=== PATIENT | male | born 1945 | race Caucasian/White ===

== ENCOUNTER 2020-08-19 09:10 | Outpatient (REF) | payer MEDICARE, SELFPAY ==
[2020-08-19 12:08] LABS: TSH reflex Free T4 10.21 uIU/mL (0.32-4.0)
[2020-08-19 12:11] LABS: Alanine Aminotransferase 26 U/L (0-40); Albumin Level 4.1 g/dL (3.5-5.0); Alkaline Phosphatase 73 U/L (39-117); Anion Gap 15 (12-20); Aspartate Amino Transferase 20 U/L (5-37); Bilirubin Total 0.8 mg/dL (0.0-1.0); Blood Urea Nitrogen 15 mg/dL (9-16); Calcium 8.6 mg/dL (8.4-10.2); Carbon Dioxide 28 mmol/L (22-29); Chloride 103 mmol/L (96-108); Estimated Glomerular Filt Rate > 60; Glucose Random 87 mg/dL (60-115); Potassium 5.1 mmol/L (3.3-5.1); Sodium 141 mmol/L (135-145)
[2020-08-19 13:52] LABS: Free T4 (Free Thyroxine) 1.02 ng/dL (0.71-1.85)
== END 2020-08-19 09:11 | disposition home or self-care (01) ==
LOC: HO.WFDLDS 09:10
PROVIDERS: Visit Provider Family Medicine
DX: Z00.00 Encounter for general adult medical examination without abnormal findings (principal); E03.9 Hypothyroidism, unspecified; R03.0 Elevated blood-pressure reading, without diagnosis of hypertension
CPT/HCPCS: 36415; 80053; 84439; 84443

== ENCOUNTER 2021-05-25 10:55 | Outpatient (REF) | payer MEDICARE, SELFPAY ==
[2021-05-25 14:00] LABS: MANUAL DIFF FLAG NO
[2021-05-25 14:08] LABS: Basophils Percent Auto 0.4 % (0-2); Eosinophils Absolute Auto 0.3 X10*3/uL (0.0-0.4); Eosinophils Percent Auto 2.8 % (0-4); Hematocrit 47.2 % (42.0-52.0); Hemoglobin 15.1 g/dl (14.0-18.0); Imm Gran Abs Auto 0.06 X10*3/uL (0.00-0.03); Imm Gran Pct Auto 0.6 % (0.0-0.4); Lymphocytes Absolute Auto 1.7 X10*3/uL (1.2-4.9); Lymphocytes Percent Auto 17.1 % (20-40); Mean Corpuscular Hemoglobin 30.4 pg (27.0-33.0); Mean Platelet Volume 11.6 fL (9.4-12.4); Monocytes Absolute Auto 0.5 X10*3/uL (0.1-1.2); Monocytes Percent Auto 5.2 % (2-11); Neutrophils Absolute Auto 7.3 x10*3/uL (2.0-8.3); Neutrophils Percent Auto 73.9 % (45-73); Platelet Count 199 X10*3/uL (160-400); Red Blood Count 4.97 X10*6/uL (4.60-5.80); Red Cell Distribution Width 15.2 % (11.0-16.0); White Blood Count 9.9 X10*3/uL (4.8-10.8)
[2021-05-25 14:37] LABS: Alanine Aminotransferase 22 U/L (0-40); Albumin Level 4.2 g/dL (3.5-5.0); Alkaline Phosphatase 78 U/L (39-117); Anion Gap 12 (12-20); Aspartate Amino Transferase 11 U/L (5-37); Bilirubin Total 0.5 mg/dL (0.0-1.0); Blood Urea Nitrogen 22 mg/dL (9-16); Calcium 9.5 mg/dL (8.4-10.2); Carbon Dioxide 29 mmol/L (22-29); Chloride 104 mmol/L (96-108); Cholesterol 277 mg/dL; Estimated Glomerular Filt Rate > 60; Glucose Fasting 126 mg/dL (60-99); HDL Cholesterol 67 mg/dL; LDL Cholesterol Calculated 177 mg/dl; Potassium 4.3 mmol/L (3.3-5.1); Sodium 141 mmol/L (135-145); Total Protein 7.4 g/dL (6.5-8.0); Triglycerides 168 mg/dL
[2021-05-25 14:45] LABS: TSH reflex Free T4 4.04 uIU/mL (0.32-4.0)
[2021-05-25 15:53] LABS: Free T4 (Free Thyroxine) 1.28 ng/dL (0.71-1.85)
[2021-05-25 16:00] LABS: Prostate Specific Antigen Scr 0.93 ng/mL (<0.05-4.0)
== END 2021-05-25 10:56 | disposition home or self-care (01) ==
LOC: HO.WFDLDS 10:55
PROVIDERS: Visit Provider Family Medicine
DX: Z00.00 Encounter for general adult medical examination without abnormal findings (principal); E03.9 Hypothyroidism, unspecified; Z12.5 Encounter for screening for malignant neoplasm of prostate
CPT/HCPCS: 36415; 80053; 80061; 84153; 84439; 84443; 85025

== ENCOUNTER 2021-11-11 09:14 | Outpatient (REF) | payer MEDICARE, SELFPAY ==
[2021-11-11 11:03] LABS: Alanine Aminotransferase 22 U/L (0-40); Albumin Level 4.2 g/dL (3.5-5.0); Alkaline Phosphatase 73 U/L (39-117); Anion Gap 12 (12-20); Aspartate Amino Transferase 17 U/L (5-37); Bilirubin Total 0.7 mg/dL (0.0-1.0); Blood Urea Nitrogen 19 mg/dL (9-16); Calcium 9.5 mg/dL (8.4-10.2); Carbon Dioxide 30 mmol/L (22-29); Chloride 103 mmol/L (96-108); Estimated Glomerular Filt Rate > 60; Glucose Fasting 98 mg/dL (60-99); Potassium 4.9 mmol/L (3.3-5.1); Sodium 140 mmol/L (135-145)
[2021-11-11 11:22] LABS: Creatinine Urine 189.44 mg/dL; Microalbum/Creatinine Ratio Ur 8.9 ug/mg cr
[2021-11-11 11:27] LABS: Free T4 (Free Thyroxine) 1.92 ng/dL (0.71-1.85); Thyroid Stimulating Hormone 0.21 uIU/mL (0.32-4.0)
[2021-11-12 22:56] LABS: Triiodothyronine T3 Total 98 ng/dL (76-181)
== END 2021-11-11 09:15 | disposition home or self-care (01) ==
LOC: HO.WFDLDS 09:14
PROVIDERS: Visit Provider Family Medicine
DX: Z00.00 Encounter for general adult medical examination without abnormal findings (principal); I10 Essential (primary) hypertension; E03.9 Hypothyroidism, unspecified; R73.01 Impaired fasting glucose
CPT/HCPCS: 36415; 80053; 82043; 84439; 84443; 84480

== ENCOUNTER 2021-12-22 07:19 | Outpatient (REF) | payer MEDICARE, SELFPAY ==
[2021-12-22 11:22] LABS: MANUAL DIFF FLAG NO
[2021-12-22 11:39] LABS: Basophils Absolute Auto 0.1 X10*3/uL (0.0-0.2); Basophils Percent Auto 1.1 % (0-2); Eosinophils Absolute Auto 0.9 X10*3/uL (0.0-0.4); Eosinophils Percent Auto 14.2 % (0-4); Hematocrit 41.2 % (42.0-52.0); Hemoglobin 13.3 g/dl (14.0-18.0); Imm Gran Abs Auto 0.03 X10*3/uL (0.00-0.03); Imm Gran Pct Auto 0.5 % (0.0-0.4); Lymphocytes Absolute Auto 1.5 X10*3/uL (1.2-4.9); Lymphocytes Percent Auto 24.9 % (20-40); Mean Corpuscular HGB Conc 32.3 g/dl (31.0-36.0); Mean Platelet Volume 11.8 fL (9.4-12.4); Monocytes Absolute Auto 0.5 X10*3/uL (0.1-1.2); Monocytes Percent Auto 8.3 % (2-11); Neutrophils Absolute Auto 3.1 x10*3/uL (2.0-8.3); Platelet Count 202 X10*3/uL (160-400); Red Blood Count 4.43 X10*6/uL (4.60-5.80); Red Cell Distribution Width 14.1 % (11.0-16.0); White Blood Count 6.1 X10*3/uL (4.8-10.8)
[2021-12-22 12:27] LABS: Alanine Aminotransferase 15 U/L (0-40); Albumin Level 3.7 g/dL (3.5-5.0); Alkaline Phosphatase 68 U/L (39-117); Anion Gap 14 (12-20); Aspartate Amino Transferase 13 U/L (5-37); Bilirubin Total 0.4 mg/dL (0.0-1.0); Blood Urea Nitrogen 19 mg/dL (9-16); Calcium 8.8 mg/dL (8.4-10.2); Carbon Dioxide 25 mmol/L (22-29); Chloride 107 mmol/L (96-108); Estimated Glomerular Filt Rate > 60; Glucose Random 97 mg/dL (60-115); Potassium 4.7 mmol/L (3.3-5.1); Sodium 141 mmol/L (135-145); Total Protein 6.1 g/dL (6.5-8.0)
[2021-12-28 13:17] LABS: Testosterone, Free 46.3 pg/mL (30.0-135.0); Testosterone, Total 338 ng/dL (250-1100)
== END 2021-12-22 07:20 | disposition home or self-care (01) ==
LOC: HO.WFDLDS 07:19
PROVIDERS: Visit Provider Family Medicine
DX: Z00.00 Encounter for general adult medical examination without abnormal findings (principal); R53.83 Other fatigue
CPT/HCPCS: 36415; 80053; 84402; 84403; 85025

== ENCOUNTER → 2022-01-01 09:41 | Outpatient (BNVA) | payer MEDICARE, SELFPAY | PROVIDERS: PCP Family Medicine; Visit Provider Internal Medicine Endocrinology, Diabetes & Metabolism | DX: E03.9 Hypothyroidism, unspecified (principal) | CPT/HCPCS: 99202 ==

== ENCOUNTER 2022-02-26 07:18 | Outpatient (REF) | payer MEDICARE, SELFPAY ==
[2022-02-26 11:11] LABS: MANUAL DIFF FLAG NO
[2022-02-26 11:31] LABS: Basophils Absolute Auto 0.1 X10*3/uL (0.0-0.2); Eosinophils Absolute Auto 1.5 X10*3/uL (0.0-0.4); Eosinophils Percent Auto 18.6 % (0-4); Hematocrit 39.8 % (42.0-52.0); Hemoglobin 12.9 g/dl (14.0-18.0); Imm Gran Abs Auto 0.04 X10*3/uL (0.00-0.03); Imm Gran Pct Auto 0.5 % (0.0-0.4); Lymphocytes Absolute Auto 1.9 X10*3/uL (1.2-4.9); Mean Corpuscular HGB Conc 32.4 g/dl (31.0-36.0); Mean Corpuscular Hemoglobin 29.4 pg (27.0-33.0); Mean Corpuscular Volume 90.7 fL (80.0-98.0); Mean Platelet Volume 11.3 fL (9.4-12.4); Monocytes Absolute Auto 0.6 X10*3/uL (0.1-1.2); Monocytes Percent Auto 7.4 % (2-11); Neutrophils Absolute Auto 3.8 x10*3/uL (2.0-8.3); Neutrophils Percent Auto 48.5 % (45-73); Platelet Count 238 X10*3/uL (160-400); Red Blood Count 4.39 X10*6/uL (4.60-5.80); Red Cell Distribution Width 15.6 % (11.0-16.0); White Blood Count 7.8 X10*3/uL (4.8-10.8)
[2022-02-26 12:05] LABS: Alanine Aminotransferase 11 U/L (0-40); Albumin Level 3.4 g/dL (3.5-5.0); Alkaline Phosphatase 64 U/L (39-117); Anion Gap 14 (12-20); Aspartate Amino Transferase 13 U/L (5-37); Bilirubin Total 0.2 mg/dL (0.0-1.0); Blood Urea Nitrogen 20 mg/dL (9-16); Calcium 8.6 mg/dL (8.4-10.2); Carbon Dioxide 28 mmol/L (22-29); Chloride 101 mmol/L (96-108); Cholesterol 204 mg/dL; Estimated Glomerular Filt Rate > 60; Glucose Fasting 90 mg/dL (60-99); HDL Cholesterol 40 mg/dL; LDL Cholesterol Calculated 139 mg/dl; Potassium 4.8 mmol/L (3.3-5.1); Sodium 138 mmol/L (135-145); Total Protein 5.4 g/dL (6.5-8.0); Triglycerides 126 mg/dL
[2022-02-26 12:07] LABS: Appearance Urine Clear; Color Urine Yellow; Glucose Urine UA Negative (Negative); Leukocyte Esterase Urine Negative (Negative); Nitrite Urine Negative (Negative); PH 6.5 (5.0-9.0); Urine Blood Negative (Negative); Urine Ketones Negative (Negative); Urine Protein Negative (Neg-Trace)
[2022-02-26 12:14] LABS: Free T4 (Free Thyroxine) 1.28 ng/dL (0.71-1.85); Prostate Specific Antigen Scr 0.58 ng/mL (<0.05-4.0); TSH reflex Free T4 6.94 uIU/mL (0.32-4.0)
[2022-02-26 12:17] LABS: Cortisol Random 14.4 ug/dL
== END 2022-02-26 07:19 | disposition home or self-care (01) ==
LOC: HO.WFDLDS 07:18
PROVIDERS: Family Medicine; Visit Provider Internal Medicine Endocrinology, Diabetes & Metabolism
DX: Z00.00 Encounter for general adult medical examination without abnormal findings (principal); Z12.5 Encounter for screening for malignant neoplasm of prostate; R73.01 Impaired fasting glucose; R53.83 Other fatigue; E03.9 Hypothyroidism, unspecified
CPT/HCPCS: 36415; 80053; 80061; 81003; 82533; 84153; 84439; 84443; 85025

== ENCOUNTER 2022-05-19 10:28 | Outpatient (REF) | payer MEDICARE, SELFPAY ==
[2022-05-19 15:00] LABS: Free T4 (Free Thyroxine) 1.25 ng/dL (0.71-1.85); Thyroid Stimulating Hormone 3.86 uIU/mL (0.32-4.0)
== END 2022-05-19 10:29 | disposition home or self-care (01) ==
LOC: HO.WFDLDS 10:28
PROVIDERS: Visit Provider Internal Medicine Endocrinology, Diabetes & Metabolism
DX: E03.9 Hypothyroidism, unspecified (principal)
CPT/HCPCS: 36415; 84439; 84443

== ENCOUNTER → 2022-05-25 15:26 | Outpatient (BNVA) | payer MEDICARE, SELFPAY | PROVIDERS: PCP Family Medicine; Visit Provider Internal Medicine Endocrinology, Diabetes & Metabolism | DX: E03.9 Hypothyroidism, unspecified (principal) | CPT/HCPCS: 99212 ==

== ENCOUNTER 2022-12-15 12:00 | Outpatient (AMB) | payer MEDICARE, SELFPAY ==
--- NOTE | 2022-12-15 12:04 | MHC.PC.OV ---
Vital Signs 12/15/22 12:08 Height 5 ft 8 in Weight 178 lb BMI 27.1 BP 132/72 Blood Pressure Location Lt brachial Position Sitting Respiration 15 Pulse 55 Pulse Source Pulse Oximeter Temp 98.6 F Temp Source Temporal Artery Scan Pulse Oximetry (%) 98 Oxygen Delivery Method Room Air Intake Visit Reasons: CPE with f/u labs and health maintenance Intake Note: Patient is here with his sister, Ana, and following up about labs. Ham Trimmer Required: No Accompanied by: Self / Same As Patient Allergies penicillin G Allergy (Mild, Verified 12/15/22 12:13) vomiting, nausea penicillin V Allergy (Mild, Verified 12/15/22 12:13) nausea, vomiting Medication List - Last Reconciled 12/15/22 by Jean Paul Fay MD colchicine 0.6 mg PO DAILY 90 days diclofenac sodium 75 mg PO BID 90 days gabapentin 300 mg PO BEDTIME 90 days Synthroid (levothyroxine) 125 mcg PO .qod 90 days NS Synthroid (levothyroxine) 137 mcg PO .qod NS tadalafil (Cialis) 20 mg PO DAILY PRN 30 days tamsulosin 0.4 mg PO BEDTIME 90 days Tobacco use date assessed: 12/15/22 Fall risk assessment: No Falls in past year Last assessed Fall Risk: 12/15/22 Dental Screening Dental Screen Date: 12/15/22 Did you have a dental visit in the last 12 months?: Yes Did you have a dental problem in the last 6 months where you did not have access to dental care?: No Was dental information given to patient?: Patient has dentist HPI CPE with f/u labs and health maintenance HPI Details 77 y/o male presents for a CPE with f/u labs and health maintenance. No recent labs to review. Pt has complaints of polyarthralgia. HPI Comments History of Present Illness Details Documentation assistance for Jean Paul Fay MD, was provided by Cam Barber,? Director Sales And Trade Marketing on 12/15/2022 12:39 PM EDWIN. Todd, Dr. Fay, have read, observed, and verified documentation.? [facility] Surgical History History of carpal tunnel surgery History of left cataract surgery History of repair of left rotator cuff History of right cataract surgery History of surgery Family History Mother Ovarian cancer Father Lung cancer Social History Housing: House Patient Tobacco Use Status: Former Tobacco user (50 years ago) Tobacco use type: Cigar e-Cigarette/Vaping Use: Never Used Second Hand Smoke Exposure: No service: No Current occupational status: retired Current occupational exposures/hazards: No Cognitive needs: No Hearing needs: No Vision needs: No Questionnaire Thrive Questionnaire Date Thrive assessed: 11/11/21 JEANMARIE-7 AMB Questionnaire JEANMARIE-7 Date JEANMARIE - 7 assessed: 12/18/21 Source: Developed by Drs. Tim George, Scarlett Fenton, Yong Ybarra and colleagues, with an educational thad from [employer]. Review of Systems Const Denies chills, Denies fatigue, Denies fever(s), Denies headache(s) and Denies weakness Eyes Denies change in vision ENT Denies dizziness, Denies headache(s), Denies hearing loss, Denies nasal congestion, Denies sinus pain, Denies sinus pressure and Denies sore throat Card Denies chest pain, Denies lightheadedness, Denies dyspnea and Denies other (palpitations) Resp Denies cough, Denies dyspnea and Denies wheezing GI Denies abdominal pain, Denies melena, Denies hematochezia, Denies change in bowel habits, Denies dyspepsia and Denies nausea Denies hematuria and Denies dysuria Musc Denies abnormal gait, Denies myalgias, Denies arthralgias, Denies numbness and Denies tingling Skin/Breast Denies rash, Denies unusual bruising and Denies wounds Neuro Denies abnormal gait, Denies dizziness, Denies headache(s), Denies memory loss, Denies numbness, Denies Sensory deficit (Neuro), Denies tingling and Denies weakness Psych Denies anxiety, Denies depression and Denies memory loss Endo Denies cold intolerance, Denies fatigue, Denies heat intolerance, Denies polydipsia and Denies polyuria [place]/Lymph Denies easy bleeding and Denies easy bruising Aller/Immun Denies wheezing Physical exam (Primary Care) Vital Signs: Last Vital Signs Temp 98.6 F 12/15/22 12:08 Pulse 55 12/15/22 12:08 Resp 15 12/15/22 12:08 BP 132/72 12/15/22 12:08 Pulse Ox 98 12/15/22 12:08 Oxygen Delivery Method Room Air 12/15/22 12:08 BMI result Body Mass Index 27.1 Tobacco/Smoking Status: Tobacco use Status Tobacco use date assessed 12/15/22 12/15/22 12:14 Patient Tobacco Use Status Former Tobacco user (50 12/15/22 12:05 years ago) Tobacco use type Cigar 12/15/22 12:05 e-Cigarette/Vaping Use Never Used 12/15/22 12:05 Thrive Assessment: Date of Thrive Assessment Date Thrive assessed 11/11/21 12/15/22 12:05 Const General: no acute distress, well developed, alert and awake Nutritional Appearance: well nourished Orientation/consciousness: patient oriented x3 HENMT Head: Yes normocephalic and Yes atraumatic Ears: hearing grossly normal bilaterally and TM's normal bilaterally General nose exam: Normal external nose present and Normal nares present Mouth: Normal oral and palatal mucosa present and moist mucous membranes Teeth and gingiva: dentition normal Throat: Yes posterior oropharynx normal Eyes General: appearance normal, both eyes and all related structures Pupils: Equal, round and reactive pupils present and Pupil accommodation reflex normal EOM: EOMs intact bilaterally Neck Neck: Yes normal visual inspection, Yes no lymphadenopathy and Yes trachea midline Thyroid: Thyroid normal Carotids: no bruits Lymphatic: no lymphadenopathy noted Chest Chest palpation & inspection: normal inspection of the chest Resp Effort & Inspection: normal respiratory effort Auscultation: clear to auscultation bilaterally Cardio Rate: regular rate Rhythm: regular rhythm Heart sounds: S1 normal heart sound present, S2 normal heart sound present, no gallops, no murmurs and no rubs Bruits: no abdominal aortic bruits and no carotid bruits GI Palpation (GI): No Abdominal aortic bruit present, Soft to palpation, nontender, No hepatosplenomegaly present and No Rebound tenderness present Auscultation: normal bowel sounds General: Yes no CVA tenderness Back/Spine/Pelvis Other: Kyphotic spine Back: no CVA tenderness Cervical Spine: cervical ROM normal and No Cervical spine tenderness Thoracic/Lumbar Spine: thoraco-lumbar ROM normal, No pain with thoraco-lumbar ROM, No thoracic spinal tenderness and No lumbar spinal tenderness Skin Lesions: no lesions Rashes: no rashes Trauma: no lacerations or abrasions Wounds: no wounds Nails: normal Neuro General: patient oriented x3 Cranial nerves: Yes Equal, round and reactive pupils present Cognition (Neuro): normal cognition Gait exam (Neuro): Normal gait present Motor exam (neuro): 5/5 motor strength present throughout Sensory Exam: No Sensory deficit (Neuro) Deep tendon reflexes (DTR's): Right patellar reflex intensity grade: 2+ and Left patellar reflex intensity grade: 2+ Extrem Other: Arthritic changes bilateral hands General: Yes normal to inspection and No edema Psych Appearance: grossly normal Affect: normal affect Attitude: cooperative Thought process: Normal thought process present Assessment and Plan Assessment & Plan (1) Adult general medical exam: Code(s): Z00.00 - Encounter for general adult medical examination without abnormal findings Plan: 77-year-old male presents for complete physical exam Encouraged healthy diet with active lifestyle and plenty of exercise (2) Polyarthralgia: Code(s): M25.50 - Pain in unspecified joint Plan: Arthritis polyarthralgias in bilateral hands, shoulders and back Wants to try meloxicam. Has tried ibuprofen and diclofenac. Will give him a trial of meloxicam Will follow-up with him in a month. He had been on Percocet in the past and may benefit from a small chronic dose of a medication such as this if meloxicam is not helping alone. Would follow up and evaluate for this. We we did discuss that we would want use a multifaceted approach. (3) Arthritis: Code(s): M19.90 - Unspecified osteoarthritis, unspecified site Plan: As above (4) Screening for prostate cancer: Code(s): Z12.5 - Encounter for screening for malignant neoplasm of prostate Plan: Check PSA (5) Screening for colon cancer: Code(s): Z12.11 - Encounter for screening for malignant neoplasm of colon Plan: Patient says that he had a colonoscopy in his early 70s and it was negative. Will request report from [facility] Orders: Orders Comprehensive [place]. Panel Fast Today Z00.00 - Encounter for general adult medical examination without abnormal findings Lipid Panel Today Z00.00 - Encounter for general adult medical examination without abnormal findings Prostate Specific Antigen Scr Today Z12.5 - Encounter for screening for malignant neoplasm of prostate TSH reflex Free T4 Today Z00.00 - Encounter for general adult medical examination without abnormal findings Microalbumin, Random (w Creat) Today I10 - Essential (primary) hypertension Complete Blood Count Auto Diff Today Z00.00 - Encounter for general adult medical examination without abnormal findings UA and rflx microscopic Today Z00.00 - Encounter for general adult medical examination without abnormal findings Coding Level of Care Code Est Pt Level 3 (35951) Est Pt Prev Care >65y(96873) Diagnoses Adult general medical exam Z00.00 Polyarthralgia M25.50 Arthritis M19.90 Screening for prostate cancer Z12.5 Screening for colon cancer Z12.11
[2022-12-15 12:08] VITALS: BP 132/72; PULSE 55; RESP 15; TEMP 37; O2SAT 98; BMI 27.1
== END 2022-12-15 12:58 | disposition home or self-care (01) ==
PROVIDERS: PCP Family Medicine; Visit Provider Family Medicine
DX: Z00.00 Encounter for general adult medical examination without abnormal findings (principal); M25.50 Pain in unspecified joint; M19.90 Unspecified osteoarthritis, unspecified site; Z12.5 Encounter for screening for malignant neoplasm of prostate; Z12.11 Encounter for screening for malignant neoplasm of colon
CPT/HCPCS: 99397

== ENCOUNTER 2023-01-07 07:37 | Outpatient (REF) | payer MEDICARE, SELFPAY ==
[2023-01-07 11:22] LABS: MANUAL DIFF FLAG NO
[2023-01-07 11:34] LABS: Appearance Urine Clear; Color Urine Yellow; Glucose Urine UA Negative (Negative); Leukocyte Esterase Urine Negative (Negative); Nitrite Urine Negative (Negative); Specific Gravity - Urine 1.015 (1.005-1.025); Urine Blood Negative (Negative); Urine Ketones Negative (Negative); Urine Protein Negative (Neg-Trace)
[2023-01-07 11:35] LABS: Basophils Absolute Auto 0.1 X10*3/uL (0.0-0.2); Basophils Percent Auto 0.6 % (0-2); Eosinophils Absolute Auto 0.2 X10*3/uL (0.0-0.4); Eosinophils Percent Auto 1.8 % (0-4); Hematocrit 41.2 % (42.0-52.0); Hemoglobin 13.3 g/dl (14.0-18.0); Imm Gran Abs Auto 0.06 X10*3/uL (0.00-0.03); Imm Gran Pct Auto 0.6 % (0.0-0.4); Lymphocytes Absolute Auto 1.8 X10*3/uL (1.2-4.9); Lymphocytes Percent Auto 18.4 % (20-40); Mean Corpuscular HGB Conc 32.3 g/dl (31.0-36.0); Mean Corpuscular Hemoglobin 29.2 pg (27.0-33.0); Mean Corpuscular Volume 90.4 fL (80.0-98.0); Monocytes Absolute Auto 0.6 X10*3/uL (0.1-1.2); Monocytes Percent Auto 6.3 % (2-11); Neutrophils Percent Auto 72.3 % (45-73); Platelet Count 216 X10*3/uL (160-400); Red Blood Count 4.56 X10*6/uL (4.60-5.80); Red Cell Distribution Width 17.5 % (11.0-16.0); White Blood Count 9.7 X10*3/uL (4.8-10.8)
[2023-01-07 11:58] LABS: Alanine Aminotransferase 18 U/L (0-40); Albumin Level 3.8 g/dL (3.5-5.0); Alkaline Phosphatase 77 U/L (39-117); Anion Gap 14 (12-20); Aspartate Amino Transferase 14 U/L (5-37); Bilirubin Total 0.3 mg/dL (0.0-1.0); Blood Urea Nitrogen 25 mg/dL (9-16); Calcium 9.3 mg/dL (8.4-10.2); Carbon Dioxide 27 mmol/L (22-29); Chloride 105 mmol/L (96-108); Cholesterol 256 mg/dL; Estimated Glomerular Filt Rate > 60; Glucose Fasting 78 mg/dL (60-99); HDL Cholesterol 61 mg/dL; LDL Cholesterol Calculated 169 mg/dl; Potassium 4.8 mmol/L (3.3-5.1); Sodium 141 mmol/L (135-145); Total Protein 6.8 g/dL (6.5-8.0); Triglycerides 133 mg/dL
[2023-01-07 12:09] LABS: Prostate Specific Antigen Scr 0.72 ng/mL (<0.05-4.0)
[2023-01-07 12:13] LABS: TSH reflex Free T4 1.58 uIU/mL (0.32-4.0)
[2023-01-07 12:22] LABS: Creatinine Urine 64.21 mg/dL; Microalbum/Creatinine Ratio Ur 7.7 ug/mg cr
== END 2023-01-07 07:38 | disposition home or self-care (01) ==
LOC: HO.WFDLDS 07:37
PROVIDERS: Visit Provider Family Medicine
DX: Z00.00 Encounter for general adult medical examination without abnormal findings (principal); Z12.5 Encounter for screening for malignant neoplasm of prostate; I10 Essential (primary) hypertension
CPT/HCPCS: 36415; 80053; 80061; 81003; 82043; 84153; 84443; 85025

== ENCOUNTER 2023-01-19 09:23 | Outpatient (AMB) | payer MEDICARE, SELFPAY ==
--- NOTE | 2023-01-19 09:25 | MHC.PC.OV ---
Vital Signs 01/19/23 09:27 Height 5 ft 8 in Weight 178 lb 2 oz BMI 27.1 BP 108/66 Blood Pressure Location Rt brachial Position Sitting Respiration 16 Pulse 61 Pulse Source Pulse Oximeter Temp 97.8 F Temp Source Temporal Artery Scan Pulse Oximetry (%) 100 Oxygen Delivery Method Room Air Intake Visit Reasons: f/u polyarthralgia and labs Intake Note: Patient presents today for a follow up of labs drawn 01/07/2023 and polyarthralgia. Patient reports he has aches and pains consistently. Speaking Unit Assembler Required: No Accompanied by: Self / Same As Patient Allergies penicillin G Allergy (Mild, Verified 01/19/23 09:32) vomiting, nausea penicillin V Allergy (Mild, Verified 01/19/23 09:32) nausea, vomiting Tobacco use date assessed: 12/15/22 Fall risk assessment: No Falls in past year Last assessed Fall Risk: 01/19/23 Dental Screening Dental Screen Date: 01/19/23 Did you have a dental visit in the last 12 months?: No Did you have a dental problem in the last 6 months where you did not have access to dental care?: No Was dental information given to patient?: Patient has dentist HPI f/u polyarthralgia and labs HPI Details 77 y/o male presents to f/u polyarthralgia and labs. Had arthritis polyarthralgias in bilateral hands, shoulders and back. Had wanted to trial meloxicam but he reports he tried meloxicam x1 month which did not work. He has seen orthopedics for his shoulders. They had switched his diclofenac to celebrex but he states this only helped minimally. Labs were drawn 01/07/23. Reviewed labs with pt. Triglycerides 133. TC 256. LDL 169. HDL 61. Mild anemia. PFSH Surgical History History of carpal tunnel surgery History of left cataract surgery History of repair of left rotator cuff History of right cataract surgery History of surgery Family History Mother Ovarian cancer Father Lung cancer Social History Housing: House Patient Tobacco Use Status: Former Tobacco user (50 years ago) Tobacco use type: Cigar e-Cigarette/Vaping Use: Never Used Second Hand Smoke Exposure: No service: No Current occupational status: retired Current occupational exposures/hazards: No Cognitive needs: No Hearing needs: No Vision needs: No Questionnaire Thrive Questionnaire Date Thrive assessed: 11/11/21 JEANMARIE-7 AMB Questionnaire JEANMARIE-7 Date JEANMARIE - 7 assessed: 12/18/21 Source: Developed by Drs. Tim George, Scarlett Fenton, Yong Ybarra and colleagues, with an educational thad from [employer]. Review of Systems Const Denies chills, Denies fatigue, Denies fever(s), Denies headache(s) and Denies weakness ENT Denies dizziness and Denies headache(s) Card Denies chest pain, Denies lightheadedness, Denies dyspnea and Denies other (Palpitations) Resp Denies cough, Denies dyspnea, Denies wheezing and Denies other ( shortness of breath) Musc Denies numbness and Denies tingling Neuro Denies dizziness, Denies headache(s), Denies numbness, Denies tingling, Denies paresthesias and Denies weakness Psych Denies anxiety and Denies depression Endo Denies fatigue Aller/Immun Denies wheezing Physical exam (Primary Care) Vital Signs: Last Vital Signs Temp 97.8 F 01/19/23 09:27 Pulse 61 01/19/23 09:27 Resp 16 01/19/23 09:27 BP 108/66 01/19/23 09:27 Pulse Ox 100 01/19/23 09:27 Oxygen Delivery Method Room Air 01/19/23 09:27 BMI result Body Mass Index 27.1 Tobacco/Smoking Status: Tobacco use Status Tobacco use date assessed 12/15/22 01/19/23 09:26 Patient Tobacco Use Status Former Tobacco user (50 01/19/23 09:26 years ago) Tobacco use type Cigar 01/19/23 09:26 e-Cigarette/Vaping Use Never Used 01/19/23 09:26 Thrive Assessment: Date of Thrive Assessment Date Thrive assessed 11/11/21 01/19/23 09:26 Const General: no acute distress and well developed Nutritional Appearance: well nourished Orientation/consciousness: patient oriented x3 HENMT Head: Yes normocephalic and Yes atraumatic Eyes General: appearance normal, both eyes and all related structures Pupils: Equal, round and reactive pupils present EOM: EOMs intact bilaterally Resp Effort & Inspection: normal respiratory effort Auscultation: clear to auscultation bilaterally Cardio Rate: regular rate Rhythm: regular rhythm Heart sounds: S1 normal heart sound present, S2 normal heart sound present, no gallops, no murmurs and no rubs Neuro General: patient oriented x3 and gait normal Cranial nerves: Yes Equal, round and reactive pupils present Psych Affect: normal affect Assessment and Plan Assessment & Plan (1) Polyarthralgia: Code(s): M25.50 - Pain in unspecified joint Plan: Ongoing polyarthralgias and osteoarthritis. He notes some mild improvement on the celecoxib He also notes family history of fibromyalgia and we can look into this further. He would like to try duloxetine so we will start this today. We also discussed using an opioid medication at bedtime and he may be a good candidate for this provided he does not use it during the daytime when overuse his joints. Week and discuss this further at a subsequent visit if celecoxib and duloxetine are not helping. (2) Arthritis: Code(s): M19.90 - Unspecified osteoarthritis, unspecified site Plan: Continue celecoxib He may benefit from an increase in this medication in the future (3) Hyperlipidemia: Code(s): E78.5 - Hyperlipidemia, unspecified Plan: LDL cholesterol is too high. He had been on statins in the past but says they made him sick. Briefly discussed Zetia. He does not want to take another medication at this time Will follow-up on this in a few months. (4) Mild anemia: Code(s): D64.9 - Anemia, unspecified Plan: Improving Will follow (5) Screening for prostate cancer: Code(s): Z12.5 - Encounter for screening for malignant neoplasm of prostate Plan: PSA was within normal limits Orders: Orders Complete Blood Count Auto Diff Today D64.9 - Anemia, unspecified, Z00.00 - Encounter for general adult medical examination without abnormal findings Lipid Panel Today E78.5 - Hyperlipidemia, unspecified, Z00.00 - Encounter for general adult medical examination without abnormal findings Comprehensive [place]. Panel Fast Today E78.5 - Hyperlipidemia, unspecified, Z00.00 - Encounter for general adult medical examination without abnormal findings Erythrocyte Sedimentation Rate Today M25.50 - Pain in unspecified joint CRP High Sensitivity Today M25.50 - Pain in unspecified joint Medications: New duloxetine 20 mg PO BID 60 caps 2RF 30 days Refilled Synthroid (levothyroxine) 125 mcg PO .qod 45 tabs 0RF 90 days NS Synthroid (levothyroxine) 137 mcg PO .qod 45 tabs 0RF NS Discontinued meloxicam Discontinued Reason: Doctor's Order 15 mg PO DAILY 30 tabs 2RF 30 days Coding Level of Care Code Est Pt Level 4 (49670) Diagnoses Polyarthralgia M25.50 Arthritis M19.90 Hyperlipidemia E78.5 Mild anemia D64.9 Screening for prostate cancer Z12.5
[2023-01-19 09:27] VITALS: BP 108/66; PULSE 61; RESP 16; TEMP 36.6; O2SAT 100; BMI 27.1
== END 2023-01-19 10:39 | disposition home or self-care (01) ==
PROVIDERS: PCP Family Medicine; Visit Provider Family Medicine
DX: M25.50 Pain in unspecified joint (principal); M19.90 Unspecified osteoarthritis, unspecified site; E78.5 Hyperlipidemia, unspecified; D64.9 Anemia, unspecified; Z12.5 Encounter for screening for malignant neoplasm of prostate
CPT/HCPCS: 99214

== ENCOUNTER 2023-10-12 14:29 | Outpatient (AMB) | payer MEDICARE, SELFPAY ==
--- NOTE | 2023-10-12 14:44 | MHC.PC.OV ---
Vital Signs 10/12/23 14:49 Height 5 ft 8 in Weight 177 lb 4 oz BMI 26.9 BP 106/52 L Blood Pressure Location Lt radial Position Sitting Respiration 16 Pulse 66 Pulse Source Pulse Oximeter Temp 97.2 F Temp Source Oral Pulse Oximetry (%) 95 Oxygen Delivery Method Room Air Intake Visit Reasons: Clearance EKG and blood work Intake Note: Diarrhea. No longer needs preop appt. Patient is rescheduling surgery in December. Requesting refill on Cialis (paper copy to take to [facility]), refill on valacyclovir. 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 Required: No Allergies penicillin G Allergy (Mild, Verified 10/12/23 14:44) vomiting, nausea penicillin V Allergy (Mild, Verified 10/12/23 14:44) nausea, vomiting Medication List - Last Reconciled 10/12/23 by Yasmine Bridges PA-C colchicine 0.6 mg PO DAILY 90 days diclofenac sodium 75 mg PO BID gabapentin 300 mg PO BEDTIME 90 days Synthroid (levothyroxine) 137 mcg PO .qod NS Synthroid (levothyroxine) 125 mcg PO .qod 90 days NS tadalafil (Cialis) 20 mg PO DAILY PRN 30 days tamsulosin 0.4 mg PO BEDTIME 90 days valacyclovir 500 mg PO BID 10 days Tobacco use date assessed: 10/12/23 Fall risk assessment: No Falls in past year Last assessed Fall Risk: 10/12/23 Dental Screening Dental Screen Date: 10/12/23 Did you have a dental visit in the last 12 months?: Yes Did you have a dental problem in the last 6 months where you did not have access to dental care?: No Was dental information given to patient?: Patient has dentist HPI Clearance EKG and blood work HPI Details Patient is a 78-year-old male with a significant past medical history polyarthralgia, anxiety, hyperlipidemia, ED, mild anemia, and BPH presenting today initially for a preop but states that it is now just a problem visit. Musculoskeletal: He is following with [facility] for his ongoing right shoulder pain. He was scheduled for surgery later this month but he had to bump it to December. He states that he is in the middle of moving to [place] and is waiting for his house to be finished before they move there full-time. He states that this week he has to go to [place] to finish installing the kitchen cabinets and then they plan to list the [place] house which they believe we will sell quickly and require him to pack up and unload furniture in [place]. He states that he can not do all of this while being in a sling. He anticipates that the moves will be done in the next 6 weeks. He is requesting a prescription for Vicodin daily to use for breakthrough pain. He states that the pain is sometimes so severe that it wakes him up at night or that during the day he will have a hard time doing something because his shoulder is very uncomfortable. He is taking Tylenol 3 times a day, diclofenac twice a day and gabapentin 300 mg at night. Psych: He was on Cymbalta in the fall for anxiety and fibromyalgia. He states that he took it for a few weeks but then had diarrhea with this so discontinued it. His , who is here today with him, states that his mood was a lot better while he was on the Cymbalta. She told him to restart this a few weeks ago and he started to develop diarrhea. He then discontinued it. He states that he over thinks a lot at night and sometimes we will have a hard time falling asleep or staying asleep because of his anxiety. He states that he really wants to take something at night. He tried melatonin but it was ineffective. They are under a lot of stress with the move. No SI/HI. GI: Diarrhea started 2-3 weeks after starting cymbalta . He denies any abdominal pain, nausea, vomiting or blood in the stool. He states his last colonoscopy was about 10 years ago at [facility] and was normal. He does not intend to continue with colonoscopies. He has tried Imodium a couple of times which did seem to help with the diarrhea. He is experiencing about 3 episodes of diarrhea a day. He did have 1 day this weekend with a normal bowel movement but then on Tuesday and Tuesday experienced a diarrhea again. He wonders if the diarrhea could also be related to the stress of the move. Denies any consumption of raw or undercooked foods. No recent travel outside of their house in [place]. CV: Blood pressure today in the office is 106/52. Last cholesterol was elevated. He does not want to be on a statin. He has been relatively plant based for the last 10 months. He is curious to see what his cholesterol looks like now. Denies any chest pain or shortness a breath. Endo: Has a history of impaired fasting glucose but last glucose was WNL. No polyuria or polydipsia. He remains on levothyroxine 125 mcg and 137 mcg alternating days. Last TSH was WNL. [facility] Medical History (Updated 10/12/23 @ 15:56 by Yasmine Bridges PA-C) Insomnia Chronic right shoulder pain Surgical History History of surgery History of repair of left rotator cuff History of right cataract surgery History of left cataract surgery History of carpal tunnel surgery Family History Mother Ovarian cancer Father Lung cancer Social History Housing: House Patient Tobacco Use Status: Current someday Tobacco user Tobacco use type: Cigar e-Cigarette/Vaping Use: Never Used Second Hand Smoke Exposure: No service: No Current occupational status: retired Current occupational exposures/hazards: No Cognitive needs: No Hearing needs: No Vision needs: No Questionnaire PHQ-9 Over the last 2 weeks, how often have you been bothered by any of the following problems? 1. Little interest or pleasure in doing things: not at all 2. Feeling down, depressed, or hopeless: not at all 3. Trouble falling or staying asleep, or sleeping too much: more than half the days 4. Feeling tired or having little energy: nearly every day 5. Poor appetite or overeating: not at all 6. Feeling bad about yourself - or that you are a failure or have let yourself or your family down: not at all 7. Trouble concentrating on things, such as reading the newspaper or watching television: more than half the days 8. Moving or speaking so slowly that other people could have noticed. Or the opposite - being so fidgety or restless that you have been moving around a lot more than usual: not at all 9. Thoughts that you would be better off or of hurting yourself in some way: several days Total score: 8 Depression Screening Interpretation: Positive Depression Screening Follow-up: Existing condition and New Medication prescribed Depression Screening Done: Yes 72191 - PHQ-9 Billing: Yes Source: Developed by Drs. Tim George, Scarlett Fenton, Yong Ybarra and colleagues, with an educational thad from [employer]. Thrive Questionnaire Date Thrive assessed: 10/12/23 I am a: Patient What is your living situation today?: I have a steady place to live Within the past 12 months, did the food you bought not last and you didn't have the money to get more?: Never true Within the past 12 months, did you worry whether your food would run out before you got money to buy more?: Never true Do you have trouble paying for medicines?: No Do you have trouble getting transportation to medical appointments?: No Do you have trouble paying your heating and electricity bill?: No Do you have trouble taking care of your child, family member or friend?: No Do you have trouble with day-to-day activities such as bathing, preparing meals, shopping, managing finances, etc.?: No Are you currently unemployed and looking for a job?: No Are you interested in more education?: No Please select the resources that you would like help with: None Currently or been in a relationship where the following occur: no concerns reported THRIVE Score: 0 AUDIT C Alcohol Use Questionnaire (AUDIT-C) 1. How often do you have a drink containing alcohol?: Never 3. How often do you have six or more drinks on one occasion?: Never Total Score: 0 JEANMARIE-7 AMB Questionnaire JEANMARIE-7 Date JEANMARIE - 7 assessed: 10/12/23 Feeling nervous, anxious, or on edge: 3 = Nearly every day Not being able to stop or control worryin = Several days Worrying too much about different things: 2 = More than half the days Trouble relaxin = Not at all Being so restless that it is hard to sit still: 0 = Not at all Becoming easily annoyed or irritable: 2 = More than half the days Feeling afraid as if something awful might happen: 2 = More than half the days Total JEANMARIE-7 score (0-4 normal; 5-9 mild; 10-14 moderate; 15-21 severe): 10 Source: Developed by Scarlett Teixeira Kurt Kroenke and colleagues, with an educational thad from [employer]. JEANMARIE-7 Assessment Billing JEANMARIE-7 Assessment Tool: JEANMARIE-7 Assessment 08326 Physical exam (Primary Care) Vital Signs: Last Vital Signs Temp 97.2 F 10/12/23 14:49 Pulse 66 10/12/23 14:49 Resp 16 10/12/23 14:49 BP 106/52 L 10/12/23 14:49 Pulse Ox 95 10/12/23 14:49 Oxygen Delivery Method Room Air 10/12/23 14:49 BMI result Body Mass Index 26.9 Tobacco/Smoking Status: Tobacco use Status Tobacco use date assessed 10/12/23 10/12/23 14:54 Patient Tobacco Use Status Current someday Tobacco 10/12/23 14:54 Tobacco use type Cigar 10/12/23 14:54 e-Cigarette/Vaping Use Never Used 10/12/23 14:54 Depression Screening Interpretation: Positive Depression Screening Follow-up: Existing condition and New Medication prescribed Thrive Assessment: Date of Thrive Assessment Date Thrive assessed 11/11/21 10/12/23 14:54 Currently or been in a relationship where the following occur: no concerns reported Results Reviewed Results Reviewed: Laboratory Tests 01/07/23 07:38 WBC 9.7 RBC 4.56 L Hgb 13.3 L Hct 41.2 L Plt Count 216 Estimated GFR > 60 Fasting Glucose 78 Triglycerides 133 Cholesterol 256 LDL Cholesterol, Calc 169 HDL Cholesterol 61 TSH 1.58 Assessment and Plan Assessment & Plan (1) Hypothyroid: Code(s): E03.9 - Hypothyroidism, unspecified Qualifiers: Hypothyroidism type: acquired Qualified Code(s): E03.9 - Hypothyroidism, unspecified Plan: TSH ordered (2) Diarrhea: Code(s): R19.7 - Diarrhea, unspecified Qualifiers: Diarrhea type: unspecified type Qualified Code(s): R19.7 - Diarrhea, unspecified Plan: He has discontinued the Cymbalta. Advised to try a probiotic, bland diet. Abdominal exam today is benign. Labs ordered including a CMP, CBC and TSH. We will follow up pending test results. (3) Chronic right shoulder pain: Code(s): M25.511 - Pain in right shoulder; G89.29 - Other chronic pain Plan: We will start Vicodin to use daily as needed. Controlled substance contract signed today. Reviewed this case with patient's PCP. I have also told him he can try taking the gabapentin twice a day. Prescription updated today. (4) Mild anemia: Code(s): D64.9 - Anemia, unspecified Plan: Last labs reviewed. Anemia has been stable. We will check labs. Reports up-to-date colonoscopy but it is at the 10 year zainab. (5) Insomnia: Code(s): G47.00 - Insomnia, unspecified Qualifiers: Insomnia type: psychophysiologic Qualified Code(s): F51.04 - Psychophysiologic insomnia Plan: We will try trazodone. Discussed risks and benefits and adverse effects of this medication. Plan Labs ordered today. Follow up pending test results. Medications refilled. Follow up in 3-4 weeks. Sooner if needed. Patient understands and agrees with the plan. Orders: Orders Complete Blood Count Auto Diff Today D64.9 - Anemia, unspecified, E03.9 - Hypothyroidism, unspecified, F41.9 - Anxiety disorder, unspecified, G89.29 - Other chronic pain, M25.511 - Pain in right shoulder, R19.7 - Diarrhea, unspecified Comprehensive [place]. Panel Fast Today D64.9 - Anemia, unspecified, E03.9 - Hypothyroidism, unspecified, F41.9 - Anxiety disorder, unspecified, G89.29 - Other chronic pain, M25.511 - Pain in right shoulder, R19.7 - Diarrhea, unspecified Ferritin Today D64.9 - Anemia, unspecified, E03.9 - Hypothyroidism, unspecified, F41.9 - Anxiety disorder, unspecified, G89.29 - Other chronic pain, M25.511 - Pain in right shoulder, R19.7 - Diarrhea, unspecified Lipid Panel Today D64.9 - Anemia, unspecified, E03.9 - Hypothyroidism, unspecified, F41.9 - Anxiety disorder, unspecified, G89.29 - Other chronic pain, M25.511 - Pain in right shoulder, R19.7 - Diarrhea, unspecified IRON PROFILE Today D64.9 - Anemia, unspecified, E03.9 - Hypothyroidism, unspecified, F41.9 - Anxiety disorder, unspecified, G89.29 - Other chronic pain, M25.511 - Pain in right shoulder, R19.7 - Diarrhea, unspecified TSH reflex Free T4 Today D64.9 - Anemia, unspecified, E03.9 - Hypothyroidism, unspecified, F41.9 - Anxiety disorder, unspecified, G89.29 - Other chronic pain, M25.511 - Pain in right shoulder, R19.7 - Diarrhea, unspecified Vitamin B12 and Folate Today D64.9 - Anemia, unspecified, E03.9 - Hypothyroidism, unspecified, F41.9 - Anxiety disorder, unspecified, G89.29 - Other chronic pain, M25.511 - Pain in right shoulder, R19.7 - Diarrhea, unspecified Medications: New hydrocodone-acetaminophen 5-300 mg Partial Fill upon patient request. 1 tab PO BEDTIME 30 days PRN 30 tabs 0RF pain trazodone 50 mg PO BEDTIME 90 tabs 0RF Changed From gabapentin 300 mg PO BEDTIME 90 days 90 caps 4RF To gabapentin 300 mg PO BID 90 days 180 caps 3RF Refilled tadalafil (Cialis) administer approximately 30min before sexual activity; do not use more than 1 dose per 24hrs 20 mg PO DAILY 30 days PRN 30 tabs 3RF sexual activity valacyclovir 500 mg PO BID 10 days 20 tabs 0RF Coding Level of Care Code Est Pt Level 4 (22703) Complex EM visit Add On G2211 Diagnoses Acquired hypothyroidism E03.9 Hypothyroidism type: acquired Diarrhea, unspecified type R19.7 Diarrhea type: unspecified type Chronic right shoulder pain M25.511; G89.29 Mild anemia D64.9 Psychophysiological insomnia F51.04 Insomnia type: psychophysiologic Additional Codes JEANMARIE-7 Assessment Billing - JEANMARIE-7 Assessment Tool: JEANMARIE-7 Assessment [id number] ([id number])
[2023-10-12 14:49] VITALS: BP 106/52; PULSE 66; RESP 16; TEMP 36.2; O2SAT 95; BMI 26.9
== END 2023-10-12 15:59 | disposition home or self-care (01) ==
LOC: HO.HMGFM 14:37
PROVIDERS: PCP Family Medicine; Visit Provider Physician Assistant
DX: E03.9 Hypothyroidism, unspecified (principal); R19.7 Diarrhea, unspecified; M25.511 Pain in right shoulder; G89.29 Other chronic pain; D64.9 Anemia, unspecified; F51.04 Psychophysiologic insomnia
CPT/HCPCS: 96127; 99214; G2211

== ENCOUNTER 2023-10-13 10:16 | Outpatient (REF) | payer MEDICARE, SELFPAY ==
[2023-10-13 11:48] LABS: MANUAL DIFF FLAG NO
[2023-10-13 11:54] LABS: Basophils Absolute Auto 0.1 X10*3/uL (0.0-0.2); Eosinophils Absolute Auto 0.4 X10*3/uL (0.0-0.4); Eosinophils Percent Auto 8.4 % (0-4); Hematocrit 44.9 % (42.0-52.0); Hemoglobin 14.5 g/dl (14.0-18.0); Imm Gran Abs Auto 0.02 X10*3/uL (0.00-0.03); Imm Gran Pct Auto 0.4 % (0.0-0.4); Lymphocytes Absolute Auto 1.3 X10*3/uL (1.2-4.9); Lymphocytes Percent Auto 24.5 % (20-40); Mean Corpuscular HGB Conc 32.3 g/dl (31.0-36.0); Mean Corpuscular Hemoglobin 30.6 pg (27.0-33.0); Mean Corpuscular Volume 94.7 fL (80.0-98.0); Mean Platelet Volume 11.4 fL (9.4-12.4); Monocytes Absolute Auto 0.4 X10*3/uL (0.1-1.2); Monocytes Percent Auto 8.4 % (2-11); Neutrophils Percent Auto 57.3 % (45-73); Platelet Count 208 X10*3/uL (160-400); Red Blood Count 4.74 X10*6/uL (4.60-5.80); Red Cell Distribution Width 15.6 % (11.0-16.0); White Blood Count 5.2 X10*3/uL (4.8-10.8)
[2023-10-13 12:28] LABS: Erythrocyte Sedimentation Rate 5 MM/HR (0-15)
[2023-10-13 12:50] LABS: Alanine Aminotransferase 19 U/L (0-40); Albumin Level 3.9 g/dL (3.5-5.0); Alkaline Phosphatase 63 U/L (39-117); Anion Gap 13 (12-20); Aspartate Amino Transferase 23 U/L (5-37); Bilirubin Total 0.6 mg/dL (0.0-1.0); Blood Urea Nitrogen 15 mg/dL (9-16); Calcium 9.2 mg/dL (8.4-10.2); Carbon Dioxide 26 mmol/L (22-29); Chloride 107 mmol/L (96-108); Cholesterol 256 mg/dL (<200); Estimated Glomerular Filt Rate > 60; Glucose Fasting 89 mg/dL (60-99); HDL Cholesterol 59 mg/dL (>40); Iron 120 mcg/dL (45-160); LDL Cholesterol Calculated 169 mg/dL (<100); Percent Iron Saturation 40 % (15-50); Potassium 5.4 mmol/L (3.3-5.1); Sodium 141 mmol/L (135-145); Total Iron Binding Capacity 297 mcg/dL (228-428); Total Protein 7.3 g/dL (6.5-8.0); Triglycerides 141 mg/dL (<150); Unsaturated Iron Binding 177 ug/dL
[2023-10-13 19:05] LABS: Ferritin 34 ng/mL (20-250); TSH reflex Free T4 3.47 uIU/mL (0.32-4.0)
[2023-10-14 16:59] LABS: CRP High Sensitivity 2.2 mg/L
== END 2023-10-13 10:17 | disposition home or self-care (01) ==
LOC: HO.WFDLDS 10:16
PROVIDERS: Referring Provider Physician Assistant; Visit Provider Family Medicine
DX: Z00.00 Encounter for general adult medical examination without abnormal findings (principal); D64.9 Anemia, unspecified; E78.5 Hyperlipidemia, unspecified; M25.50 Pain in unspecified joint; M25.511 Pain in right shoulder; G89.29 Other chronic pain; R19.7 Diarrhea, unspecified; F41.9 Anxiety disorder, unspecified; E03.9 Hypothyroidism, unspecified
CPT/HCPCS: 36415; 80053; 80061; 82728; 83540; 84443; 85025; 85652; 86141

== ENCOUNTER 2023-11-16 08:26 | Outpatient (REF) | payer MEDICARE, SELFPAY ==
[2023-11-16 11:09] LABS: MANUAL DIFF FLAG NO
[2023-11-16 11:29] LABS: Basophils Absolute Auto 0.1 X10*3/uL (0.0-0.2); Eosinophils Absolute Auto 0.5 X10*3/uL (0.0-0.4); Eosinophils Percent Auto 7.6 % (0-4); Hematocrit 44.6 % (42.0-52.0); Hemoglobin 14.7 g/dl (14.0-18.0); Imm Gran Abs Auto 0.03 X10*3/uL (0.00-0.03); Imm Gran Pct Auto 0.5 % (0.0-0.4); Lymphocytes Absolute Auto 1.4 X10*3/uL (1.2-4.9); Lymphocytes Percent Auto 24.2 % (20-40); Mean Corpuscular Hemoglobin 31.7 pg (27.0-33.0); Mean Corpuscular Volume 96.1 fL (80.0-98.0); Mean Platelet Volume 11.1 fL (9.4-12.4); Monocytes Absolute Auto 0.6 X10*3/uL (0.1-1.2); Monocytes Percent Auto 9.3 % (2-11); Neutrophils Absolute Auto 3.4 x10*3/uL (2.0-8.3); Neutrophils Percent Auto 57.4 % (45-73); Platelet Count 205 X10*3/uL (160-400); Red Blood Count 4.64 X10*6/uL (4.60-5.80); Red Cell Distribution Width 16.8 % (11.0-16.0); White Blood Count 5.9 X10*3/uL (4.8-10.8)
[2023-11-16 12:14] LABS: Alanine Aminotransferase 17 U/L (0-40); Albumin Level 4.1 g/dL (3.5-5.0); Alkaline Phosphatase 70 U/L (39-117); Anion Gap 13 (12-20); Aspartate Amino Transferase 16 U/L (5-37); Bilirubin Total 0.6 mg/dL (0.0-1.0); Blood Urea Nitrogen 20 mg/dL (9-16); Calcium 9.6 mg/dL (8.4-10.2); Carbon Dioxide 28 mmol/L (22-29); Chloride 105 mmol/L (96-108); Cholesterol 231 mg/dL (<200); Estimated Glomerular Filt Rate > 60; Glucose Fasting 103 mg/dL (60-99); Glucose Random 100 mg/dL (60-115); HDL Cholesterol 63 mg/dL (>40); LDL Cholesterol Calculated 152 mg/dL (<100); Potassium 4.6 mmol/L (3.3-5.1); Sodium 141 mmol/L (135-145); Total Protein 7.1 g/dL (6.5-8.0); Triglycerides 80 mg/dL (<150)
[2023-11-16 12:27] LABS: Folate 8.4 ng/mL (> or = 4.0); Vitamin B12 307 pg/mL (200-900)
== END 2023-11-16 08:27 | disposition home or self-care (01) ==
LOC: HO.WFDLDS 08:26
PROVIDERS: Visit Provider Physician Assistant
DX: M25.511 Pain in right shoulder (principal); G89.29 Other chronic pain; R19.7 Diarrhea, unspecified; D64.9 Anemia, unspecified; F41.9 Anxiety disorder, unspecified; E03.9 Hypothyroidism, unspecified; E87.5 Hyperkalemia
CPT/HCPCS: 36415; 80048; 80053; 80061; 82607; 82746; 85025

== ENCOUNTER 2023-11-17 15:09 | Outpatient (AMB) | payer MEDICARE, SELFPAY ==
--- NOTE | 2023-11-17 15:14 | A.OFFPC_ITS ---
Vital Signs 11/17/23 15:19 Height 5 ft 8 in Weight 172 lb 8 oz BMI 26.2 BP 112/52 L Blood Pressure Location Lt brachial Position Sitting Pulse 71 Pulse Source Pulse Oximeter Temp 95 F L Temp Source Oral Intake Visit Reasons: f/u Intake Note: Follow up. Rash on right hand. 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: No Accompanied by: Spouse Allergies penicillin G Allergy (Mild, Verified 11/17/23 15:17) vomiting, nausea penicillin V Allergy (Mild, Verified 11/17/23 15:17) nausea, vomiting Medication List - Last Reconciled 11/17/23 by Yasmine Bridges PA-C colchicine 0.6 mg PO DAILY 90 days diclofenac sodium 75 mg PO BID gabapentin 300 mg PO BID 90 days hydrocodone-acetaminophen 5-300 mg 1 tab PO BEDTIME PRN 30 days Synthroid (levothyroxine) 137 mcg PO .qod NS Synthroid (levothyroxine) 125 mcg PO .qod 90 days NS tadalafil (Cialis) 20 mg PO DAILY PRN 30 days tamsulosin 0.4 mg PO BEDTIME 90 days trazodone 50 mg PO BEDTIME valacyclovir 500 mg PO BID 10 days Tobacco use date assessed: 10/12/23 Dental Screening Dental Screen Date: 10/12/23 HPI f/u HPI Details Patient is a 78-year-old male with a significant past medical history polyarthralgia, anxiety, hyperlipidemia, ED, mild anemia, and BPH presenting today initially for a preop but states that it is now just a problem visit. Musculoskeletal: He is following with [facility] for his ongoing right shoulder pain. He was scheduled for surgery later this month but he had to bump it to December. He states that he is in the middle of moving to [place] and is waiting for his house to be finished before they move there full-time. He states that this week he has to go to [place] to finish installing the kitchen cabinets and then they plan to list the [place] house which they believe we will sell quickly and require him to pack up and unload furniture in [place]. He states that he can not do all of this while being in a sling. He anticipates that the moves will be done in the next 6 weeks. After a discussion at our last visit with his PCP it was determined that he could have a short term prescription of Vicodin for the next couple of months. He is taking Tylenol 3 times a day, diclofenac twice a day and gabapentin 300 mg twice a day now. The gabapentin was also increased at our last visit. Psych: He was started on trazodone at our last visit for insomnia. He states that this has been very helpful for him. He has sleeping through the night now. He states he feels so much better. CV: Blood pressure today in the office is 112/52. Last cholesterol was elevated. He does not want to be on a statin. He has been relatively plant based for the last 10 months. He is curious to see what his cholesterol looks like now. Denies any chest pain or shortness a breath. Endo: Has a history of impaired fasting glucose but last glucose was WNL. No polyuria or polydipsia. He remains on levothyroxine 125 mcg and 137 mcg alternating days. Last TSH was WNL. Derm: Reports that he gets a raised, itchy rash on his hands. 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 No contacts with similar sx. has not tried anything PFSH Medical History (Updated 11/17/23 @ 16:12 by Yasmine Bridges PA-C) Insomnia Chronic right shoulder pain Surgical History History of surgery History of repair of left rotator cuff History of right cataract surgery History of left cataract surgery History of carpal tunnel surgery Family History Mother Ovarian cancer Father Lung cancer Social History Housing: House Patient Tobacco Use Status: Current someday Tobacco user Tobacco use type: Cigar e-Cigarette/Vaping Use: Never Used Second Hand Smoke Exposure: No service: No Current occupational status: retired Current occupational exposures/hazards: No Cognitive needs: No Hearing needs: No Vision needs: No Questionnaire Thrive Questionnaire Date Thrive assessed: 10/12/23 JEANMARIE-7 AMB Questionnaire JEANMARIE-7 Date JEANMARIE - 7 assessed: 10/12/23 Source: Developed by Drs. Tim George, Scarlett Fenton, Yong Ybarra and colleagues, with an educational thad from [employer]. Physical exam (Primary Care) Tobacco/Smoking Status: Tobacco use Status Tobacco use date assessed 10/12/23 10/12/23 14:54 Patient Tobacco Use Status Current someday Tobacco 10/12/23 14:54 Tobacco use type Cigar 10/12/23 14:54 e-Cigarette/Vaping Use Never Used 10/12/23 14:54 Thrive Assessment: Date of Thrive Assessment Date Thrive assessed 10/12/23 10/12/23 15:25 Const Orientation/consciousness: patient oriented x3 HENMT Ears: hearing grossly normal bilaterally Neck Thyroid: Thyroid normal Lymphatic: no lymphadenopathy noted Resp Auscultation: clear to auscultation bilaterally Cardio Rate: regular rate Rhythm: regular rhythm Heart sounds: S1 normal heart sound present and S2 normal heart sound present GI Inspection: Yes normal to inspection Palpation (GI): Soft to palpation and Other GI palpation findings present (nontender, no cva tenderness) Auscultation: normoactive bowel sounds Rectal Exam - Male: Yes deferred Skin Other: There is a papular, erythematous rash with flaking skin noted on the palmar as pect of the left hand. Neuro General: patient oriented x3, gait normal and no focal motor deficits Results Reviewed Results Reviewed: Laboratory Tests 10/13/23 11/16/23 10:18 08:30 WBC 5.9 RBC 4.64 Hgb 14.7 Hct 44.6 MCV 96.1 Plt Count 205 Sodium 141 Potassium 4.6 Chloride 105 Carbon Dioxide 28 Anion Gap 13 BUN 20 H Creatinine 0.99 Estimated GFR > 60 Fasting Glucose 89 103 H AST 16 ALT 19 17 Alkaline Phosphatase 70 Triglycerides 141 80 Cholesterol 256 H 231 H LDL Cholesterol, Calc 169 H 152 H HDL Cholesterol 59 63 Assessment and Plan Assessment & Plan (1) Difficulty sleeping: Code(s): G47.9 - Sleep disorder, unspecified Plan: We will refill the trazodone. (2) Hyperlipidemia: Code(s): E78.5 - Hyperlipidemia, unspecified Plan: Improved cholesterol. Refuses statin. Is going to continue to work on this. (3) Chronic right shoulder pain: Code(s): M25.511 - Pain in right shoulder; G89.29 - Other chronic pain Plan: We will refill the Vicodin. He will have a follow up with PCP to discuss further refills. (4) Atopic dermatitis: Code(s): L20.9 - Atopic dermatitis, unspecified Qualifiers: Atopic dermatitis type: unspecified Qualified Code(s): L20.9 - Atopic dermatitis, unspecified Plan: Will start triamcinolone cream. advised to follow up if no improvement in 1-2 weeks. pt understands and agrees with the plan. Medications: New triamcinolone acetonide 0.025% 1 appl topical BID 14 days 80 grams 2RF valacyclovir (Valtrex) 1,000 mg PO DAILY 90 tabs 3RF Changed From diclofenac sodium 75 mg PO BID To diclofenac sodium 75 mg PO BID 90 days 180 tabs 3RF Refilled hydrocodone-acetaminophen 5-300 mg Partial Fill upon patient request. 1 tab PO BEDTIME 30 days PRN 30 tabs 0RF pain trazodone 50 mg PO BEDTIME 90 tabs 3RF Discontinued valacyclovir Discontinued Reason: Doctor's Order 500 mg PO BID 10 days 20 tabs 0RF Coding Level of Care Code Est Pt Level 4 (63716) Diagnoses Difficulty sleeping G47.9 Hyperlipidemia E78.5 Chronic right shoulder pain M25.511; G89.29 Atopic dermatitis, unspecified type L20.9 Atopic dermatitis type: unspecified
[2023-11-17 15:19] VITALS: BP 112/52; PULSE 71; TEMP 35; BMI 26.2
== END 2023-11-17 15:47 | disposition home or self-care (01) ==
PROVIDERS: PCP Family Medicine; Visit Provider Physician Assistant
DX: G47.9 Sleep disorder, unspecified (principal); E78.5 Hyperlipidemia, unspecified; M25.511 Pain in right shoulder; G89.29 Other chronic pain; L20.9 Atopic dermatitis, unspecified
CPT/HCPCS: 99214